=== PATIENT | male | born 1985 | race Caucasian/White ===

== ENCOUNTER 2016-10-31 12:16 | Emergency (ER) | payer OTHER ==
[2016-10-31 12:55] VITALS: BP 124/83; PULSE 98; RESP 18; TEMP 98
[2016-10-31] MEDS ORDERED: PROPARACAINE 0.5% OPHTH DROPS 15 ML BTL ONE (13:01)
[2016-10-31] MEDS: PROPARACAINE 0.5% OPHTH DROPS 15 ML BTL RIGHT EYE STA (13:19)
--- NOTE | 2016-10-31 13:35 | ED ---
General Adult HPI - General Chief complaint: Eye Problems Stated complaint: [facility]HS-Eye Pain Time Seen by Provider: 10/31/16 13:11 Source: patient, RN notes reviewed Mode of arrival: ambulatory Limitations: no limitations - History of Present Illness Initial comments: Patient 31-year-old male who presents emergency room today with a chief complaint of possible foreign body to the right eye. He does admit that he was at work. He states he was cleaning off a pad which had some liquid at all and it. States it splashed up Underneath his safety glasses and burned the upper lid of his eye and he believes a small piece may have got into the eye. States that another coworker was able to take a liquid metal removed from the eyelid pulled it off. Patient does admit to still expresses some foreign body sensation to the right eye. He states unsure of his tetanus status. He admits to pain locally to the right eye warm body feeling. He denies any other complaints or symptoms at this time. - Related Data Home Medications Medication Instructions Recorded Confirmed Famotidine [Pepcid] 40 mg PO DAILY 10/24/15 04/23/16 Omeprazole [PriLOSEC] 20 mg PO AC-BID 10/24/15 04/23/16 Previous Rx's Medication Instructions Recorded Ibuprofen [Motrin] 800 mg PO Q8HR #20 tab 10/31/16 Tobramycin 0.3% Ophth Soln [Tobrex 1 - 2 drop RIGHT EYE QID 7 Days 10/31/16 0.3% Ophth Soln] Allergies Allergy/AdvReac Type Severity Reaction Status Date / Time No Known Allergies Allergy Verified 10/31/16 12:55 Review of Systems ROS Statement: Those systems with pertinent positive or pertinent negative responses have been documented in the HPI. ROS Other: All systems not noted in ROS Statement are negative. Past Medical History Past Medical History: GERD/Reflux Additional Past Medical History / Comment(s): C/o's of pressure in Abd. History of Any Multi-Drug Resistant Organisms: None Reported Past Surgical History: Appendectomy Past Anesthesia/Blood Transfusion Reactions: No Reported Reaction Past Psychological History: No Psychological Hx Reported Smoking Status: Former smoker Past Alcohol Use History: Rare Past Drug Use History: None Reported - Past Family History Mother Family Medical History: No Reported History Father Family Medical History: Cancer Additional Family Medical History / Comment(s): Colon General Exam - General Exam Comments Initial Comments: General: The patient is awake and alert, in no distress, and does not appear acutely ill. Eye: Pupils are equal, round and reactive to light, extra-ocular movements are intact. No nystagmus. There is normal conjunctiva bilaterally. No signs of icterus. Ears, nose, mouth and throat: There are moist mucous membranes and no oral lesions. Neck: The neck is supple, there is no tenderness or JVD. Cardiovascular: There is a regular rate and rhythm. No murmur, rub or gallop is appreciated. Respiratory: Lungs are clear to auscultation, respirations are non-labored, breath sounds are equal. No wheezes, stridor, rales, or rhonchi. Musculoskeletal: Normal ROM, no tenderness. Strength 5/5. Sensation intact. Pulses equal bilaterally 2+. Neurological: A&O x 3. CN II-XII intact, There are no obvious motor or sensory deficits. Coordination appears grossly intact. Speech is normal. Skin: Skin is warm and dry and no rashes or lesions are noted. Psychiatric: Cooperative, appropriate mood & affect, normal judgment. Limitations: no limitations Course Vital Signs 10/31/16 12:51 Temperature 98.0 F Pulse Rate 98 Respiratory 18 Rate Blood Pressure 124/83 O2 Sat by Pulse 97 Oximetry Procedures - Procedures Initial comment: Patient's right eye was anesthetized locally with proparacaine which didn't relieve his symptoms. He was stained with forcing injected with a Thomas lamp which does reveal a small corneal abrasion at the 11 o'clock position. Lids inverted no sign of foreign body. Does have small burn to the upper lid measuring sized pencil tip. Right eye was also checked with slit lamp revealing no other abnormalities. Disposition Clinical Impression: Corneal abrasion Disposition: HOME SELF-CARE Condition: Good Instructions: Corneal Abrasion (ED) Additional Instructions: Please use antibiotic drops as prescribed and follow-up with program rep later today or tomorrow. Please return to emergency room if the symptoms increase or worsen or for any other concerns. Prescriptions: Ibuprofen [Motrin] 800 mg PO Q8HR #20 tab Tobramycin 0.3% Ophth Soln [Tobrex 0.3% Ophth Soln] 1 - 2 drop RIGHT EYE QID 7 Days Referrals: Nicolás,Sascha, DO [Primary Care Provider] - 1-2 days Chris Suazo MD [STAFF PHYSICIAN] - 1-2 days Time of Disposition: 13:28
[2016-10-31] MEDS: DIPH,PERTUS(ACELL)TETVAC-LF 0.5 ML VIAL IM ONE (13:40)
== END 2016-10-31 13:43 | disposition home or self-care (01) ==
LOC: EC 12:16
DX: T54.91XA Toxic effect of unspecified corrosive substance, accidental (unintentional), initial encounter (principal); S05.01XA Injury of conjunctiva and corneal abrasion without foreign body, right eye, initial encounter; T26.01XA Burn of right eyelid and periocular area, initial encounter; K21.9 Gastro-esophageal reflux disease without esophagitis; Z87.891 Personal history of nicotine dependence; Z79.899 Other long term (current) drug therapy; Z87.19 Personal history of other diseases of the digestive system; Z23 Encounter for immunization; Y92.69 Other specified industrial and construction area as the place of occurrence of the external cause; Y93.E5 Activity, floor mopping and cleaning; Y99.0 Civilian activity done for income or pay
CPT/HCPCS: 90471; 90715; 99283

== ENCOUNTER → 2017-10-16 | Outpatient (CLI) | payer OTHER ==
--- NOTE | 2017-10-16 13:53 | EST ---
EXERCISE STRESS AGE: 32 SEX: M HT: 64" WT: 202 PROTOCOL: Carlton Stress Test STAGE: 4 DURATION OF EXERCISE: 10:00 HEART RATE REST: 81 BLOOD PRESSURE REST: 113/93 MAXIMUM HEART RATE ACHIEVED: 158 MAXIMUM BLOOD PRESSURE: 180/85 85% MPHR: 158 100% MPHR: 186 METS: 11.7 INDICATIONS: Family history. CLINICAL INFORMATION: Baseline rhythm is sinus mechanism, rate 81, normal axis, with RSR prime. Poor R-wave progression. Rare PACs. Baseline blood pressure 113/93 mmHg. Patient exercised on Carlton protocol for 10 minutes reaching a peak rate of 158 beats per minutes, which is equal to 85% of maximum predicted heart rate. Peak blood pressure 180/85 mmHg, test was terminated due to fatigue. There is no chest pain. Electrocardiographic monitoring revealed no evidence of diagnostic ischemic ST deviation. CONCLUSION: 1. Average exercise tolerance with no symptoms of chest pain. 2. Normal electrocardiographic response to exercise with no evidence of stress induced ischemia. MMODL / IJN: [id number] /
== END | disposition home or self-care (01) ==
LOC: RADNMMAIN 10:25
PROVIDERS: ATTEND Family Medicine
DX: Z03.89 Encounter for observation for other suspected diseases and conditions ruled out (principal); K21.9 Gastro-esophageal reflux disease without esophagitis; Z82.49 Family history of ischemic heart disease and other diseases of the circulatory system
CPT/HCPCS: 93017

== ENCOUNTER 2022-01-01 01:22 | Emergency (ER) | payer OTHER ==
[2022-01-01] MEDS ORDERED: ERYTHROMYCIN 5 MG/GM OPHTH OINT 3.5 GM TUBE BOTH EYES STA (01:27)
[2022-01-01] MEDS ORDERED: FLUORESCEIN STRIPS 1 MG STRIP BOTH EYES ONE (01:27)
[2022-01-01] MEDS ORDERED: PROPARACAINE 0.5% OPHTH DROPS 15 ML BTL BOTH EYES STA (01:27)
[2022-01-01 01:32] VITALS: BP 136/83; PULSE 87; RESP 22; TEMP 98
--- NOTE | 2022-01-01 01:54 | ED ---
Eye Problem HPI - General Stated complaint: IHS foreign body in RT eye Time Seen by Provider: 01/01/22 01:27 Source: patient, RN notes reviewed Mode of arrival: ambulatory Limitations: no limitations - History of Present Illness Initial comments: Patient was at work and believes he got a flake of glass in his right eye. It occurred just prior to arrival. Patient denies any problems with visual acuity. Patient complaining of foreign body sensation. Up-to-date on tetanus. No headache, no fever or chills, no changes in vision or hearing, no sore throat or difficulty with speech, no neck pain, no chest pain or shortness of breath, no abdominal pain, no nausea or vomiting, no changes in urination or bowel movements, no numbness or tingling, no extremity pain, no skin rashes or lesions. Past medical, surgical, social, and family history reviewed. - Related Data Previous Rx's Medication Instructions Recorded Ibuprofen [Motrin] 800 mg PO Q8HR #20 tab 10/31/16 Tobramycin 0.3% Ophth Soln [Tobrex 1 - 2 drop RIGHT EYE QID 7 Days ml 10/31/16 0.3% Ophth Soln] Allergies Allergy/AdvReac Type Severity Reaction Status Date / Time No Known Allergies Allergy Verified 01/01/22 01:32 Review of Systems ROS Statement: Those systems with pertinent positive or pertinent negative responses have been documented in the HPI. ROS Other: All systems not noted in ROS Statement are negative. Past Medical History Past Medical History: GERD/Reflux Additional Past Medical History / Comment(s): C/o's of pressure in Abd. History of Any Multi-Drug Resistant Organisms: None Reported Past Surgical History: Appendectomy Past Anesthesia/Blood Transfusion Reactions: No Reported Reaction Past Psychological History: No Psychological Hx Reported Smoking Status: Never smoker Past Alcohol Use History: Rare Past Drug Use History: None Reported - Past Family History Mother Family Medical History: No Reported History Father Family Medical History: Cancer Additional Family Medical History / Comment(s): Colon General Exam - General Exam Comments Initial Comments: Mild distress, does not appear to be ill or toxic Limitations: no limitations General appearance: alert, in distress Head exam: Present: atraumatic, normocephalic, normal inspection Eye exam: Present: PERRL, EOMI, conjunctival injection. Absent: scleral icterus, nystagmus, periorbital swelling, periorbital tenderness Pupils: Present: normal accommodation Expanded Pupils: Regular, Round: Bilateral, Reactive: Bilateral Sclera/Conjunctival: Foreign Body: Right (Tiny foreign body under the upper eyelid conjunctival foreign body, noted with eyelid eversion, removed with cotton-tipped applicator) Anterior chamber: Normal Inspection: Bilateral Visual acuity (R) = 20/: 20 Visual acuity (L) = 20/: 20 ENT exam: Present: normal exam Neck exam: Present: normal inspection, full ROM Respiratory exam: Present: normal lung sounds bilaterally. Absent: respiratory distress, wheezes, rales, rhonchi, stridor Cardiovascular Exam: Present: regular rate, normal rhythm, normal heart sounds. Absent: systolic murmur, diastolic murmur, rubs, gallop, clicks Course Vital Signs 01/01/22 01:27 Temperature 98 F Pulse Rate 87 Respiratory 22 Rate Blood Pressure 136/83 O2 Sat by Pulse 95 Oximetry Procedures - Forgein Body Removal Eye Site: Right Anesthetic Used: Proparacaine Eye Exam Technique: Thomas Lamp, Fluorescein, Slit Lamp Foreign Body Suspected: Metal Forgein Body Removal Technique: Cotton Swab Remaining Debris: No Patient Tolerated: well Additional Comments: Right eyelid everted. Foreign body removed with a moistened cotton-tipped applicator Medical Decision Making - Medical Decision Making There was a foreign body noted underneath the right eyelid which was removed with a moistened cotton-tipped applicator. Patient tolerated well. Erythromycin ointment instilled. Visual acuity was normal. Patient was told to return to the ER for any signs or symptoms worsen. Told to return immediately if any other problems arise. All questions answered. Treatment plan discussed. Patient in agreement Every effort has been made to ensure accuracy of this dictation. However, due to the limitations of electronic medical records and dictation devices, errors in charting still occur. [employer] Dr. Clark Disposition Clinical Impression: Acute foreign body of right conjunctiva, Corneal abrasion, right Disposition: HOME SELF-CARE Condition: Good Instructions (If sedation given, give patient instructions): Eye Foreign Body (ED) Additional Instructions: Erythromycin eye ointment, 1 cm to the affected eye every 6 hours for 2-3 days. Follow-up with the fourdrinier tender tomorrow for reevaluation, contact your human resources training manager for further guidance. Follow-up with your regular physician as directed. Return to the ER immediately if any symptoms worsen, new symptoms arise, or any other problems develop. Is patient prescribed a controlled substance at d/c from ED?: No Referrals: Hunter Hammonds MD [STAFF PHYSICIAN] - 01/02/22 Time of Disposition: 01:53
== END 2022-01-01 02:18 | disposition home or self-care (01) ==
LOC: EC 01:22
DX: S05.01XA Injury of conjunctiva and corneal abrasion without foreign body, right eye, initial encounter (principal); W45.8XXA Other foreign body or object entering through skin, initial encounter
CPT/HCPCS: 99282